=== PATIENT | female | born 1990 ===

== ENCOUNTER 2019-02-28 15:37 | Emergency (ER) | payer OTHER ==
[~2019-02-28] VITALS: Ht 162.6 cm; Wt 106.5 kg
[~2019-02-28 15:37] MED LIST: ACET-1600 PO; BUSP15TA PO; CLON0.1T22 PO; DICY10CA3 PO; DULO60CA55 PO; GABA300C10 PO; GINK60CA PO; HYDR1TAB13 PO; IBUP-1222 PO; LAMO100T PO; MAGN400O7 PO; MULTIVITAMIN PO; OXYC-306 PO; POLY17PO5 PO; SUMA50TA4 PO; TRAZ-137 PO
--- NOTE | 2019-02-28 16:15 | NUR ---
PT UNDRESSED, PLACED IN GOWN, BELONGINGS PLACED IN LOCKER, ROOM SECURED. GRANDMOTHER ALLOWED AT BS. URINE COLLECTED/WALKED TO LAB. PT OFFERED BLANKET AND FOOD, FOOD REFUSED AT THIS TIME. 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 ERP IN TO SEE PT. PT REPORTS FREQUENT THOUGHTS OF SI WITH PLAN TODAY TO CUT WRISTS. PT STATES HX OF SA WITH OD WHEN 11 YO. PT STATES SHE HAS BEEN ALTERING MEDICATIONS, FEELING SHE IS "DESTABALIZING". PSYCH HX OF SCHIZOAFFECTIVE, DEPRESSION.
[2019-02-28 16:20] LABS: BASOPHILS # (AUTO) 0.11 x10^3/uL (0-0.1); BASOPHILS % (AUTO) 1 % (0-1); EOSINOPHILS # (AUTO) 0.01 x10^3/uL (0-0.4); EOSINOPHILS % (AUTO) 0 % (1-7); LYMPHOCYTES # (AUTO) 2.75 x10^3/uL (1-3.4); LYMPHOCYTES % (AUTO) 24 % (22-44); MD NO; MEAN CORPUSCULAR HEMOGLOBIN 30.3 pg (27.0-34.8); MEAN CORPUSCULAR HGB CONC 33.8 g/dL (32.4-35.8); MEAN CORPUSCULAR VOLUME 89.6 fL (80-100); MONOCYTES # (AUTO) 0.63 x10^3/uL (0.2-0.8); MONOCYTES % (AUTO) 6 % (2-9); NEUTROPHILS # (AUTO) 7.85 x10^3/uL (1.8-6.8); NEUTROPHILS % (AUTO) 69 % (42-75); PLATELET COUNT 359 x10^3/uL (130-400); RED BLOOD COUNT 5.18 x10^6/uL (3.82-5.3); RED CELL DISTRIBUTION WIDTH 15.7 % (9.6-15.2)
[2019-02-28 16:26] LABS: ALANINE AMINOTRANSFERASE 77 U/L (12-78); ALBUMIN 4.1 g/dL (3.4-5.0); ANION GAP 7 mmol/L (5-15); CALCIUM 9.8 mg/dL (8.5-10.1); CHLORIDE 108 mmol/L (98-107); CREATININE 1.04 mg/dL (0.55-1.02)
[2019-02-28 16:31] LABS: ALKALINE PHOSPHATASE 97 U/L (45-117); BILIRUBIN,TOTAL 0.2 mg/dL (0.2-1.0); TOTAL PROTEIN 8.2 g/dL (6.4-8.2)
[2019-02-28 16:36] LABS: ACETAMINOPHEN < 2 mcg/mL (10-30); SALICYLATE LEVEL < 1.7 mg/dL (2.8-20.0)
[2019-02-28 16:45] LABS: AMPHETAMINE SCREEN, URINE Negative (Negative); BARBITURATE SCREEN, URINE Negative (Negative); BENZODIAZEPINE SCREEN, URINE Negative (Negative); CANNABINOID SCREEN, URINE Positive (Negative); COCAINE SCREEN, URINE Negative (Negative); METHADONE SCREEN, URINE Negative (Negative); OPIATE SCREEN, URINE Negative (Negative)
--- NOTE | 2019-02-28 16:54 | NUR ---
SOC INITIATED (SPOKE WITH DIANNE)
[2019-02-28] MEDS ORDERED: CETI10CA PO (17:26)
[2019-02-28] MEDS ORDERED: LURA120T PO (17:26)
[2019-02-28] MEDS ORDERED: PRAZ2CAP2 PO (17:26)
[2019-02-28] MEDS ORDERED: TRINTELLIX PO (17:26)
[2019-02-28] MEDS ORDERED: QUET25TA5 PO (17:26)
[2019-02-28] MEDS ORDERED: PROP20TA PO (17:26)
[2019-02-28] MEDS ORDERED: MAGN400T36 PO (17:33)
[2019-02-28] MEDS ORDERED: ONDANSETRON ODT 4 MG ONE (17:57)
[2019-02-28] MEDS ORDERED: ONDANSETRON ODT 4 MG PO ONE (18:00)
--- NOTE | 2019-02-28 18:01 | NUR ---
PT C/O NAUSEA, ZOFRAN ORDERED PER PROTOCOL AND PROVIDED TO PT. MED REC COMPLETED TO BEST OF PT'S ABILILITY. SITTER AT DOORWAY FOR CLOSE OBS.
--- NOTE | 2019-02-28 18:44 | NUR ---
PT RESTING QUIETLY, READING BOOK OCCASIONALLY. SITTER AT DOORWAY, CONTINUE TO AWAIT SOC.
--- NOTE | 2019-02-28 19:30 | NUR ---
PT RESTING QUIETLY, NAD. SITTER AT DOORWAY.
--- NOTE | 2019-02-28 21:30 | NUR ---
CASSIDY IN TO SPEAK WITH PT. AVAILABILITY AT [facility], PAPERWORK TO BE FAXED BY THROUGHPUT.
--- NOTE | 2019-02-28 22:00 | NUR ---
PT CHART FAXED TO [facility] PER REQUEST FROM JORGE L. PER JORGE L, [facility] TO ACCEPT PT SOMETIME TONIGHT.
--- NOTE | 2019-02-28 22:34 | NUR ---
REPORT TO MEETA AT [facility]. PER MEETA, NEED ACCEPTING MD AND WILL CALL BACK WHEN READY TO ACCEPT PT.
--- NOTE | 2019-02-28 23:00 | NUR ---
report of pt from [place]. assuming care of pt at this time.
--- NOTE | 2019-02-28 23:12 | NUR ---
REPORT TO ANURADHA BENITEZ.
--- NOTE | 2019-03-01 01:31 | NUR ---
SPOKE WITH [facility]. AWAITING UPDATED PT INFO BEFORE PT CAN TRANSFER. UPPER MARKER NOTIFIED.
--- NOTE | 2019-03-01 02:39 | NUR ---
PT ASLEEP IN [facility]; LEON. SITTER OUTSIDE OF ROOM AT THIS TIME FOR DIRECT OBSERVATION OF PT.
--- NOTE | 2019-03-01 04:24 | NUR ---
PT ASLEEP IN [facility] AT THIS TIME; LEON. SITTER OUTSIDE OF PT ROOM FOR DIRECT OBSERVATION OF PT.
[2019-03-01 05:38] VITALS: BP 143/103
--- NOTE | 2019-03-01 06:21 | NUR ---
[facility] CALLED WITH AN ACCEPTING MD DR NOVA
--- NOTE | 2019-03-01 06:50 | NUR ---
BS REPORT OF PT GIVEN TO EMMANUEL GUZMÁN. ALL QUESTIONS ANSWERED.
--- NOTE | 2019-03-01 06:53 | NUR ---
received bedside report from EMMANUEL LING. PT RESTING ON [facility]. AWAITING PLACEMENT THIS MORNING. NO ACUTE DISTRESS NOTED.
--- NOTE | 2019-03-01 07:22 | NUR ---
diet tray ordered
--- NOTE | 2019-03-01 07:32 | NUR ---
SPOKE WITH CRISTINA AT [facility]. PT DOES NOT HAVE TRANSPORT BENEFITS
--- NOTE | 2019-03-01 07:49 | NUR ---
[facility] NOTIFIED OF APPROX [id number] ETA
--- NOTE | 2019-03-01 08:08 | NUR ---
PT RESTING ON GURNEY. NO ACUTE DISTRESS NOTED. AWAITING TRANSPORT. NO NEEDS REQUESTED AT THIS TIME. ALL SAFETY MEASURES OBTAINED.
--- NOTE | 2019-03-01 08:10 | NUR ---
DIET TRAY DELIVERED.
--- NOTE | 2019-03-01 09:30 | NUR ---
PT DISCHARGED WITH [facility] TO [facility]. PT LEFT WITH ALL PERSONAL BELONGINGS. PT AMBULATORY WITH [facility] WITH EMS.
== END 2019-03-01 09:32 ==
LOC: ED 16:31
DX: F32.9 Major depressive disorder, single episode, unspecified (principal); R45.851 Suicidal ideations
CPT/HCPCS: 36415; 80053; 80307; 80329; 84703; 85025; 99285; Q0162; 99284; G0480